=== PATIENT | female | born 1965 | race African-American/Black ===

== ENCOUNTER 2020-10-07 16:24 | Inpatient (IN) | payer OTHER ==
[2020-10-07] MEDS ORDERED: ASPIRIN 81 MG CHEWABLE TABLETS PO ONE (18:07)
[2020-10-07] MEDS ORDERED: ASPIRIN 81 MG CHEWABLE TABLETS ONE (18:44)
[2020-10-07 19:15] LABS: BASO % 0.4 % (0-2.0); EOS % 0.5 % (0-4.5); HEMATOCRIT 43.1 % (32.4-45.2); HEMOGLOBIN 14.4 GM/dL (10.7-15.3); LYMPH % 18.4 % (8-40); MCH 23.5 pg (25.7-33.7); MCHC 33.5 g/dl (32.0-36.0); MEAN CELL VOLUME 70.2 fl (80-96); MEAN PLT VOLUME 8.6 fl (7.5-11.1); MONO % 6.7 % (3.8-10.2); PLATELET COUNT 267 K/MM3 (134-434); RBC 6.13 M/mm3 (3.60-5.2); RDW 14.9 % (11.6-15.6); WHITE BLOOD COUNT 13.3 K/mm3 (4.0-10.0)
[2020-10-07 19:22] LABS: INR 1.07 (0.83-1.09); PROTHROMBIN TIME (PATIENT) 12.9 SEC (9.7-13.0)
[2020-10-07 19:29] LABS: CHLORIDE 100 mmol/L (98-107); SODIUM 136 mmol/L (136-145)
[2020-10-07 19:32] LABS: ALBUMIN 3.6 g/dl (3.4-5.0); ANION GAP 5 MMOL/L (8-16); BLOOD UREA NITROGEN 21.3 mg/dL (7-18); CALCIUM 9.4 mg/dL (8.5-10.1); CO2 31 mmol/L (21-32); GLUCOSE,RANDOM 112 mg/dL (74-106); MAGNESIUM 2.7 mg/dL (1.8-2.4)
[2020-10-07 19:35] LABS: CREATININE 0.9 mg/dL (0.55-1.3); SGOT/AST 55 U/L (15-37); SGPT/ALT 85 U/L (13-61)
[2020-10-07 19:37] LABS: BILIRUBIN,TOTAL 0.9 mg/dL (0.2-1); TOT PROT 7.6 g/dl (6.4-8.2)
[2020-10-07 19:38] LABS: ALK PHOS 78 U/L (45-117)
[2020-10-07] MEDS ORDERED: POTASSIUM CHLORIDE TABS 20 MEQ TABLET.ER (FP) PO ONE ×2 (19:56→20:09)
[2020-10-07 20:40] LABS: VENOUS BASE EXCESS 1.9 mmol/L (-2-2); VENOUS O2 SATURATION 71.6 % (70-80); VENOUS PCO2 42.6 mmHg (38-52); VENOUS PH 7.416 (7.310-7.410)
[2020-10-07 20:43] LABS: LDH 408 U/L (84-246)
[2020-10-07] MEDS ORDERED: DEXAMETHASONE SOD PHOSPHATE 4 MG/1 ML VIAL IVPUSH ONE (20:58)
[2020-10-07] MEDS ORDERED: DEXAMETHASONE SOD PHOSPHATE 4 MG/1 ML VIAL ONE (21:05)
[2020-10-07] MEDS ORDERED: LACTATED RINGERS SOLUTION 1000 ML INFUS.BAG IV ONE (21:11)
[2020-10-07] MEDS ORDERED: SODIUM CHLORIDE 0.9% 500 ML INFUS.BAG IV ONE (21:18)
[2020-10-08 04:33] VITALS: BMI 30.2
[2020-10-08 09:26] LABS: BASO % 0.3 % (0-2.0); HEMATOCRIT 41.1 % (32.4-45.2); HEMOGLOBIN 13.6 GM/dL (10.7-15.3); MCH 23.6 pg (25.7-33.7); MEAN CELL VOLUME 71.5 fl (80-96); MEAN PLT VOLUME 8.9 fl (7.5-11.1); MONO % 2.3 % (3.8-10.2); NEUT % 87.4 % (42.8-82.8); PLATELET COUNT 269 K/MM3 (134-434); RBC 5.75 M/mm3 (3.60-5.2); RDW 15.5 % (11.6-15.6); WHITE BLOOD COUNT 10.7 K/mm3 (4.0-10.0)
[2020-10-08 10:05] LABS: ALBUMIN 3.2 g/dl (3.4-5.0); BLOOD UREA NITROGEN 16.3 mg/dL (7-18)
[2020-10-08 10:07] LABS: BILIRUBIN,TOTAL 0.7 mg/dL (0.2-1); TOT PROT 7.2 g/dl (6.4-8.2)
[2020-10-08 10:08] LABS: CREATININE 0.9 mg/dL (0.55-1.3)
[2020-10-08] MEDS: DEXAMETHASONE SOD PHOSPHATE 4 MG/1 ML VIAL IVPUSH SCH (11:51)
[2020-10-08] MEDS: CHOLECALCIFEROL (VIT D3) 1,000 UNIT (25 MCG) TABLET PO SCH (11:52)
[2020-10-08] MEDS: ENOXAPARIN NA (PORCINE) 40 MG/0.4 ML DISP.SYRIN SQ SCH (11:52)
[2020-10-08] MEDS: ASCORBIC ACID 500 MG TABLET (FP) PO SCH ×2 (11:52→21:17)
[2020-10-08] MEDS: ZINC SULFATE 220 MG CAPSULE (FP) PO SCH ×2 (11:52→21:17)
[2020-10-09] MEDS: ASCORBIC ACID 500 MG TABLET (FP) PO SCH (11:13)
[2020-10-09] MEDS: CHOLECALCIFEROL (VIT D3) 1,000 UNIT (25 MCG) TABLET PO SCH (11:13)
[2020-10-09] MEDS: ENOXAPARIN NA (PORCINE) 40 MG/0.4 ML DISP.SYRIN SQ SCH (11:14)
[2020-10-09] MEDS: ZINC SULFATE 220 MG CAPSULE (FP) PO SCH (11:14)
[2020-10-09] MEDS: DEXAMETHASONE SOD PHOSPHATE 4 MG/1 ML VIAL IVPUSH SCH (11:14)
[2020-10-09 14:43] VITALS: BP 117/56; PULSE 81; TEMP 98.4
== END 2020-10-09 18:55 | disposition home or self-care (01) | DRG 137 ==
LOC: JER 16:24 → JERBED 19:50 → J6S 10-08 04:13
PROVIDERS: ADMIT Internal Medicine; ATTEND Internal Medicine
DX: U07.1 COVID-19 (principal); J12.82 Pneumonia due to coronavirus disease 2019; R05 Cough; R09.02 Hypoxemia; R53.81 Other malaise
CPT/HCPCS: 36415; 71045-TC-FY; 80053; 82550; 82728; 82803; 83615; 83735; 83880; 84484; 85025; 85379; 85610; 85730; 86140; 86769; 87804; 93005; 93010; 99285-25; C9803; U0003; U0005

== ENCOUNTER 2022-01-05 13:42 | Emergency (ER) | payer OTHER ==
[2022-01-05 14:17] VITALS: BP 101/56; TEMP 99.6; BMI 29.0
[2022-01-05] MEDS ORDERED: ACETAMINOPHEN 500 MG TABLET (FP) PO ONE (15:21)
[2022-01-05] MEDS ORDERED: ACETAMINOPHEN 500 MG TABLET (FP) ONE (15:42)
[2022-01-05 17:01] VITALS: PULSE 91
== END 2022-01-05 17:00 | disposition home or self-care (01) ==
LOC: JER 13:42
DX: U07.1 COVID-19 (principal); R05.1 Acute cough
CPT/HCPCS: 71046-TC-FY; 99283-25

== ENCOUNTER 2022-06-13 05:30 | Emergency (ER) | payer OTHER ==
[2022-06-13 06:13] VITALS: BP 102/72; BMI 29.0
[2022-06-13] MEDS ORDERED: ACETAMINOPHEN 1000 MG/100 ML BAG IVPB ONE (08:00)
[2022-06-13] MEDS ORDERED: SODIUM CHLORIDE 1,000 ML IV STA (08:02)
[2022-06-13] MEDS ORDERED: ONDANSETRON 4 MG/2 ML VIAL IVPUSH ONE (08:05)
[2022-06-13] MEDS ORDERED: ONDANSETRON 4 MG/2 ML VIAL ONE (08:34)
[2022-06-13] MEDS ORDERED: ACETAMINOPHEN INJECTION 100 ML IVPB ONE (08:34)
[2022-06-13 09:08] LABS: BASO % 0.8 % (0-2.0); EOS % 1.1 % (0-4.5); HEMOGLOBIN 14.5 GM/dL (10.7-15.3); LYMPH % 7.9 % (8-40); MCH 22.9 pg (25.7-33.7); MEAN CELL VOLUME 69.2 fl (80-96); MEAN PLT VOLUME 8.8 fl (7.5-11.1); MONO % 10.7 % (3.8-10.2); NEUT % 79.5 % (42.8-82.8); PLATELET COUNT 310 10^3/uL (134-434); RBC 6.35 M/mm3 (3.60-5.2); WHITE BLOOD COUNT 9.3 K/mm3 (4.0-10.0)
[2022-06-13 09:31] LABS: BLOOD UREA NITROGEN 11.4 mg/dL (7-18); CALCIUM 9.8 mg/dL (8.5-10.1)
[2022-06-13 09:34] LABS: CREATININE 1.1 mg/dL (0.55-1.3)
[2022-06-13 09:36] LABS: TOT PROT 7.6 g/dl (6.4-8.2)
[2022-06-13 11:01] VITALS: PULSE 100; RESP 18; TEMP 100.7
== END 2022-06-13 11:04 | disposition home or self-care (01) ==
LOC: JER 05:30
PROC: 3E0333Z Introduction of Anti-inflammatory into Peripheral Vein, Percutaneous Approach (ICD-10-PCS; principal; 2022-06-13)
PROC: 3E033GC Introduction of Other Therapeutic Substance into Peripheral Vein, Percutaneous Approach (ICD-10-PCS; 2022-06-13)
PROC: 3E0337Z Introduction of Electrolytic and Water Balance Substance into Peripheral Vein, Percutaneous Approach (ICD-10-PCS; 2022-06-13)
DX: R11.2 Nausea with vomiting, unspecified (principal); J06.9 Acute upper respiratory infection, unspecified
CPT/HCPCS: 0241U-QW; 36415; 71046-TC-FY; 80053; 83690; 84484; 85025; 93005; 93010; 99285-25

== ENCOUNTER 2023-09-27 10:39 | Inpatient (IN) | payer OTHER ==
[2023-09-29 06:53] LABS: POTASSIUM 3.9 mmol/L (3.5-5.1)
[2023-09-29 06:55] LABS: BLOOD UREA NITROGEN 14.3 mg/dL (7-18); CALCIUM 9.3 mg/dL (8.5-10.1)
[2023-09-29] MEDS ORDERED: ACETAMINOPHEN INJECTION 100 ML IVPB ONE (06:55)
[2023-09-29] MEDS ORDERED: MIDAZOLAM HCL 2 MG/2 ML SINGLE DOSE VIAL ONE (06:56)
[2023-09-29 07:02] LABS: HEMATOCRIT 42.1 % (32.4-45.2); HEMOGLOBIN 13.6 GM/dL (10.7-15.3); MCH 22.9 pg (25.7-33.7); MCHC 32.3 g/dl (32.0-36.0); MEAN CELL VOLUME 70.8 fl (80-96); PLATELET COUNT 224 10^3/uL (134-434); RBC 5.94 M/mm3 (3.60-5.2); RDW 15.1 % (11.6-15.6); WHITE BLOOD COUNT 7.7 K/mm3 (4.0-10.0)
[2023-09-29 07:06] LABS: INR 0.97 (0.83-1.09); PROTHROMBIN TIME (PATIENT) 11.2 SEC (9.7-13.0)
[2023-09-29] MEDS ORDERED: PROPOFOL 20 ML ONE ×2 (07:12→09:29)
[2023-09-29] MEDS ORDERED: LIDOCAINE HCL/PF 2% SDV 5ML VIAL ONE (07:12)
[2023-09-29] MEDS ORDERED: FENTANYL CITRATE/PF 50 MCG/ML VIAL ONE ×5 (07:14→13:13)
[2023-09-29] MEDS ORDERED: BUPIVACAINE HCL/PF 0.25% (2.5MG/ML) 10 ML VIAL ONE (07:15)
[2023-09-29] MEDS ORDERED: ONDANSETRON 4 MG/2 ML VIAL IVPUSH PRN (07:24)
[2023-09-29] MEDS ORDERED: oxyCODONE HCL 5 MG TABLET PO PRN (07:24)
[2023-09-29] MEDS ORDERED: ROCURONIUM BROMIDE 50 MG/5 ML SYRINGE ONE ×3 (07:53→10:23)
[2023-09-29] MEDS ORDERED: SUCCINYLCHOLINE CHLORIDE 200 MG/10 ML SYRINGE ONE (07:53)
[2023-09-29] MEDS ORDERED: HEPARIN NA (PORCINE) 5,000 UNITS/ML 1ML VIAL ONE (08:14)
[2023-09-29] MEDS: ceFAZolin SODIUM 1 GM VIAL IVPB ONE (08:50)
[2023-09-29] MEDS: HEPARIN NA (PORCINE) 5,000 UNITS/ML 1ML VIAL SQ ONE (08:53)
[2023-09-29] MEDS ORDERED: INDOCYANINE GREEN 25 MG/10 ML VIAL IVPUSH ONE (10:14)
[2023-09-29] MEDS ORDERED: SUGAMMADEX SODIUM 200 MG/2 ML VIAL ONE (11:27)
[2023-09-29] MEDS ORDERED: KETOROLAC TROMETHAMINE 30 MG/1 ML VIAL ONE (11:27)
[2023-09-29] MEDS ORDERED: ONDANSETRON 4 MG/2 ML VIAL ONE ×2 (11:27)
[2023-09-29] MEDS ORDERED: HYDROmorphone HCl 2 MG/ML VIAL ONE (11:56)
[2023-09-29] MEDS: LACTATED RINGERS SOLUTION 1,000 ML IV SCH (13:00)
[2023-09-29] MEDS: POLYETHYLENE GLYCOL (HEALTHYLAX) 3350 17 GM PACKET PO ONE (13:00)
[2023-09-29] MEDS ORDERED: HYDROmorphone *PCA* 10MG/50ML DISP.SYRIN ONE (13:04)
[2023-09-29] MEDS: HYDROmorphone *PCA* 10MG/50ML DISP.SYRIN PCA SCH (13:30)
[2023-09-29] MEDS: HYDROmorphone *PCA* 10MG/50ML DISP.SYRIN PCA ONE (13:30)
[2023-09-29] MEDS ORDERED: ALBUTEROL SO4 0.083% IH SOL 2.5 MG/3 ML VIAL.NEB. NEB ONE (14:42)
[2023-09-29] MEDS: ALBUTEROL SO4 0.083% IH SOL 2.5 MG/3 ML VIAL.NEB. NEB ONE (14:45)
[2023-09-29] MEDS: ALBUTEROL SO4 0.083% IH SOL 2.5 MG/3 ML VIAL.NEB. NEB SCH (14:45)
[2023-09-29] MEDS: ACETAMINOPHEN 325 MG TABLET (FP) PO SCH (15:51)
[2023-09-29] MEDS: KETOROLAC TROMETHAMINE 15 MG/ML VIAL IVPUSH SCH (15:55)
[2023-09-29] MEDS: DOCUSATE SODIUM 100 MG CAPSULE (FP) PO SCH (17:08)
[2023-09-29] MEDS: SENNOSIDES 8.6MG TABLET (FP) PO SCH (21:55)
[2023-09-29] MEDS: KETOROLAC TROMETHAMINE 30 MG/1 ML VIAL IVPUSH SCH (21:55)
[2023-09-29] MEDS ORDERED: KETOROLAC TROMETHAMINE 15 MG/ML VIAL IVPUSH SCH (22:00)
[2023-09-30 07:21] LABS: BASO % 0.1 % (0-2.0); HEMOGLOBIN 11.6 GM/dL (10.7-15.3); MCH 22.6 pg (25.7-33.7); MCHC 32.1 g/dl (32.0-36.0); MEAN CELL VOLUME 70.2 fl (80-96); MEAN PLT VOLUME 9.4 fl (7.5-11.1); NEUT % 80.9 % (42.8-82.8); PLATELET COUNT 214 10^3/uL (134-434); RBC 5.12 M/mm3 (3.60-5.2); RDW 14.7 % (11.6-15.6); WHITE BLOOD COUNT 12.2 K/mm3 (4.0-10.0)
[2023-09-30 07:41] LABS: POTASSIUM 4.3 mmol/L (3.5-5.1)
[2023-09-30 08:01] LABS: BLOOD UREA NITROGEN 10.1 mg/dL (7-18)
[2023-09-30 08:02] LABS: CALCIUM 8.9 mg/dL (8.5-10.1)
[2023-09-30 08:04] LABS: CREATININE 0.8 mg/dL (0.55-1.3)
[2023-09-30] MEDS: ENOXAPARIN NA (PORCINE) 40 MG/0.4 ML DISP.SYRIN SQ SCH (09:23)
[2023-09-30] MEDS ORDERED: ENOXAPARIN NA (PORCINE) 40 MG/0.4 ML DISP.SYRIN SQ SCH (10:00)
[2023-09-30] MEDS: UMECLIDINIUM/VILANTEROL (ANORO) 62.5/25 MCG INHALER IH SCH (17:18)
[2023-10-01 06:47] LABS: BASO % 0.4 % (0-2.0); EOS % 0.8 % (0-4.5); HEMATOCRIT 34.1 % (32.4-45.2); HEMOGLOBIN 10.9 GM/dL (10.7-15.3); LYMPH % 20.2 % (8-40); MCH 22.8 pg (25.7-33.7); MCHC 31.8 g/dl (32.0-36.0); MEAN CELL VOLUME 71.7 fl (80-96); MONO % 10.3 % (3.8-10.2); NEUT % 68.3 % (42.8-82.8); PLATELET COUNT 179 10^3/uL (134-434); RBC 4.76 M/mm3 (3.60-5.2); RDW 14.6 % (11.6-15.6); WHITE BLOOD COUNT 10.5 K/mm3 (4.0-10.0)
[2023-10-01 07:05] LABS: POTASSIUM 4.1 mmol/L (3.5-5.1)
[2023-10-01 07:09] LABS: ALBUMIN 2.9 g/dl (3.4-5.0); BLOOD UREA NITROGEN 14.2 mg/dL (7-18); CALCIUM 8.7 mg/dL (8.5-10.1)
[2023-10-01 07:12] LABS: CREATININE 0.8 mg/dL (0.55-1.3)
[2023-10-01 07:13] LABS: PHOSPHOROUS 3.3 mg/dL (2.5-4.9)
[2023-10-01 07:14] LABS: TOT PROT 5.6 g/dl (6.4-8.2)
[2023-10-01] MEDS: FUROSEMIDE 40 MG/4 ML INJECTABLE VIAL IVPUSH SCH (13:35)
[2023-10-02 07:09] LABS: BASO % 0.5 % (0-2.0); EOS % 3.5 % (0-4.5); HEMATOCRIT 32.8 % (32.4-45.2); HEMOGLOBIN 10.5 GM/dL (10.7-15.3); LYMPH % 21.7 % (8-40); MCH 22.7 pg (25.7-33.7); MEAN CELL VOLUME 70.8 fl (80-96); MEAN PLT VOLUME 9.5 fl (7.5-11.1); MONO % 9.7 % (3.8-10.2); NEUT % 64.6 % (42.8-82.8); PLATELET COUNT 206 10^3/uL (134-434); RBC 4.63 M/mm3 (3.60-5.2); WHITE BLOOD COUNT 9.2 K/mm3 (4.0-10.0)
[2023-10-02 07:35] LABS: ALBUMIN 2.7 g/dl (3.4-5.0); BLOOD UREA NITROGEN 9.6 mg/dL (7-18); MAGNESIUM 1.9 mg/dL (1.8-2.4)
[2023-10-02 07:38] LABS: CREATININE 0.8 mg/dL (0.55-1.3)
[2023-10-02 07:39] LABS: BILIRUBIN,TOTAL 0.8 mg/dL (0.2-1); TOT PROT 5.4 g/dl (6.4-8.2)
[2023-10-02] MEDS ORDERED: SIMETHICONE 80 MG TAB.CHEW (FP) PO PRN (08:39)
[2023-10-02] MEDS: POLYETHYLENE GLYCOL (HEALTHYLAX) 3350 17 GM PACKET PO SCH (09:03)
[2023-10-02] MEDS: traMADol HCL 50 MG TABLET PO PRN (13:58)
[2023-10-02] MEDS: IBUPROFEN 600 MG TABLET (FP) PO SCH (13:59)
[2023-10-02] MEDS ORDERED: FUROSEMIDE 40 MG/4 ML INJECTABLE VIAL IVPUSH SCH (14:50)
[2023-10-02] MEDS: ALPRAZolam 0.25 MG TABLET PO ONE (15:06)
[2023-10-02] MEDS: FUROSEMIDE 40 MG/4 ML INJECTABLE VIAL IVPUSH ONE (15:56)
[2023-10-03 06:59] LABS: BASO % 0.6 % (0-2.0); EOS % 4.4 % (0-4.5); HEMATOCRIT 34.8 % (32.4-45.2); HEMOGLOBIN 11.3 GM/dL (10.7-15.3); LYMPH % 27.3 % (8-40); MCH 22.9 pg (25.7-33.7); MCHC 32.4 g/dl (32.0-36.0); MEAN CELL VOLUME 70.7 fl (80-96); MEAN PLT VOLUME 8.9 fl (7.5-11.1); MONO % 9.3 % (3.8-10.2); NEUT % 58.4 % (42.8-82.8); PLATELET COUNT 241 10^3/uL (134-434); RBC 4.92 M/mm3 (3.60-5.2); RDW 14.7 % (11.6-15.6); WHITE BLOOD COUNT 9.1 K/mm3 (4.0-10.0)
[2023-10-03 07:19] LABS: CALCIUM 9.4 mg/dL (8.5-10.1)
[2023-10-03 07:20] LABS: BLOOD UREA NITROGEN 12.3 mg/dL (7-18)
[2023-10-03 07:23] LABS: CREATININE 0.9 mg/dL (0.55-1.3)
[2023-10-03 07:24] LABS: BILIRUBIN,TOTAL 0.8 mg/dL (0.2-1); TOT PROT 6.1 g/dl (6.4-8.2)
[2023-10-04 06:49] LABS: POTASSIUM 4.1 mmol/L (3.5-5.1)
[2023-10-04 06:57] LABS: CALCIUM 9.9 mg/dL (8.5-10.1); CREATININE 0.8 mg/dL (0.55-1.3)
[2023-10-04 06:58] LABS: BASO % 0.6 % (0-2.0); BILIRUBIN,TOTAL 0.8 mg/dL (0.2-1); EOS % 4.5 % (0-4.5); HEMATOCRIT 35.1 % (32.4-45.2); HEMOGLOBIN 11.5 GM/dL (10.7-15.3); LYMPH % 23.6 % (8-40); MAGNESIUM 2.3 mg/dL (1.8-2.4); MCH 22.9 pg (25.7-33.7); MCHC 32.8 g/dl (32.0-36.0); MEAN CELL VOLUME 69.8 fl (80-96); MEAN PLT VOLUME 8.5 fl (7.5-11.1); MONO % 9.8 % (3.8-10.2); NEUT % 61.5 % (42.8-82.8); PLATELET COUNT 276 10^3/uL (134-434); RBC 5.03 M/mm3 (3.60-5.2); RDW 14.8 % (11.6-15.6); TOT PROT 6.2 g/dl (6.4-8.2); WHITE BLOOD COUNT 9.1 K/mm3 (4.0-10.0)
[2023-10-04 13:18] VITALS: BMI 31.8
[2023-10-04] MEDS: SODIUM CHLORIDE NASAL SPRAY 44 ML BOTTLE NS ONE (14:27)
[2023-10-04 15:16] VITALS: BP 125/77; PULSE 77; RESP 17; TEMP 98
== END 2023-10-04 15:00 | disposition home or self-care (01) | DRG 120 ==
LOC: J2C 09-29 04:10 → JICU 09-29 15:31
PROVIDERS: ADMIT Student in an Organized Health Care Education/Training Program; ATTEND Internal Medicine
PROC: 07T74ZZ Resection of Thorax Lymphatic, Percutaneous Endoscopic Approach (ICD-10-PCS; 2023-09-29)
PROC: 8E0W4CZ Robotic Assisted Procedure of Trunk Region, Percutaneous Endoscopic Approach (ICD-10-PCS; 2023-09-29)
PROC: 0W9B30Z Drainage of Left Pleural Cavity with Drainage Device, Percutaneous Approach (ICD-10-PCS; 2023-09-29)
PROC: 0BBG4ZZ Excision of Left Upper Lung Lobe, Percutaneous Endoscopic Approach (ICD-10-PCS; principal; 2023-09-29 08:00)
DX: C34.12 Malignant neoplasm of upper lobe, left bronchus or lung (principal); J44.9 Chronic obstructive pulmonary disease, unspecified; F17.200 Nicotine dependence, unspecified, uncomplicated; J98.11 Atelectasis; R09.02 Hypoxemia
CPT/HCPCS: 36415; 70553-TC; 71045-TC-FY; 71275-TC; 80048; 80053; 83735; 84100; 85025; 85027; 85610; 85730; 86900; 86922; 87635; 88307-TC; 88309-TC; 88313-TC; 88331-TC; 88341-TC; 88342-TC; 94640; 94760; 94761; 97116-GP; 97161-GP; J0131; J1644; Q9967